=== PATIENT | female | born 1970 | race African-American/Black ===

== ENCOUNTER 2024-04-22 21:28 | Emergency (ER) | payer BC, SELFPAY ==
[2024-04-22 21:30] VITALS: BP 150/80
--- NOTE | 2024-04-22 22:45 | ED.GENMED ---
History of Present Illness
General
Chief Complaint: Allergic Reaction
Source: patient
Exam Limitations: none
Time Seen by Provider: 04/22/24 22:24
History of Present Illness
History of Present Illness:
This is a 54 year old female that comes in with c/o hives. States that they are staying in a Hotel and they went and worked out. State that they walked back to the room and about 2-3 hours ago she broke out into hives. States that they were all over
and she felt like she was burning. 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 States that she did use the pigs feet cleaner at the gym to wipe down the equipment. Denies any fever, chills, chest pain, SOB, abd
pain, nausea, vomiting, diarrhea, headache, dizziness, urinary burning. Denies any use of the towels, soaps or lotions.
Past History
Past History
ED Past Medical History: Other (Uterine Fibroid, )
ED Past Surgical History: ( X 2) and Gynecological (Uterine ablation)
Social History
Tobacco: Non-smoker
Alcohol: Occasional
Personal:
Living: with family
Employment: Employed
Review of Systems
Review of Systems
All Other Systems: ROS reviewed and negative except as documented in HPI and ROS
Constitutional: Reports no symptoms; Denies fever or chills
EENT: Reports no symptoms
Respiratory: Reports no symptoms; Denies cough or trouble breathing
Cardiac: Reports no symptoms; Denies chest pain
ABD/GI: Reports no symptoms; Denies abdominal pain, nausea, vomiting or diarrhea
: Reports no symptoms; Denies dysuria, frequency or urgency
Musculoskeletal: Reports no symptoms
Skin: Reports itching (with hives)
Neurological: Reports no symptoms; Denies dizzy or headache
Psychiatric: Reports no symptoms
Phy Exam
General Physical Exam
General Presentation: well appearing and no apparent distress
General age: appears stated age
General Skin: warm and dry
General Habitus: normal
General Mental: alert
General Hydration: appears well hydrated
ENT Exam
ENT Exam: TM's normal, pharynx normal and neck supple
Eye Exam
Eye Exam: EOMI
Cardiovascular Exam
Cardiovascular Exam: regular rate/rhythm, no edema, no murmur and normal peripheral pulses
Pulmonary Exam
Pulmonary Exam: lungs clear, no respiratory distress, no rales, chest non tender, no crackles, no rhonchi, no wheezing and no cough
Gastrointestinal Exam
Gastrointestinal Exam: normal bowel sounds, non tender, soft, no organomegaly, no pulsatile mass and non distended
Musculoskeletal Exam
Musculoskeletal Exam: full ROM and no edema
Skin Exam
Skin Exam: normal color, warm/dry, no petechia and other (Negative for any hives at this time. Slight redness noted on the arms. )
Psychiatric Exam
Psychiatric Exam: normal mood/affect
Course
Orders/Labs/Results
Orders:
Orders
04/22/24 22:44
Diphenhydramine [Benadryl] 50 mg PO NOW STA
Famotidine [Pepcid] 40 mg PO NOW STA
Vital Signs
Initial and Last Documented VS:
Initial Vital Signs
Temp Pulse Resp BP Pulse Ox
98.2 F 83 18 150/80 99
04/22/24 21:30 04/22/24 21:30 04/22/24 21:30 04/22/24 21:30 04/22/24 21:30
Last Documented Vital Signs
Temp Pulse Resp BP Pulse Ox
98.2 F 83 18 150/80 99
04/22/24 21:30 04/22/24 21:30 04/22/24 21:30 04/22/24 21:30 04/22/24 21:30
MDM/Problems Addressed
Differential Diagnosis Includes:
Allergic reaction
MDM/Problems Addressed:
This is a 54 year old female that comes in with c/o hives. States that they area staying in a hotel and after working out they went back to the room and she broke out in hives. Denies any use of towel, soaps or lotions but did use the wash for the
machines at the gym.
At this time there are no hives noted but patient still felt like she had some burning. Patient lungs are clear. This may have been a reaction to the solution that was used to clean the machines. Will give Benadryl and Pepcid and discharge patient
home.
*Pulse Oximetry
Patient hypoxic: no
*EKG
Interpreted by ED Provider?: NA
Rate: EKG- N/A
*Web Content Manager Interpretation
Rate: Web Content Manager- N/A
*Critical Care Note
Total Time (30-74mins, 75-104mins- exclusive of procedures): Not Applicable
ED Attending Note
-
Portions of this chart may have been created with voice recognition software.� Occasional wrong word or��sound alike� substitutions may have occurred due to the inherent limitations of voice recognition software.
Discharge Plan
Departure
Patient Disposition: Home (Routine Discharge)
Date of Disposition: 04/22/24
Time of Disposition: 22:52
Patient with high blood pressure during this ER visit?: Yes
Condition: Good
Covid-19: Not Applicable
Discharge Problem:
Allergic reaction
Instructions: Hives (DC), BLOOD PRESSURE
Referrals:
UNKNOWN - PT DOES,NOT KNOW [Family Provider] -
Activity Restrictions/Additional Instructions:
As discussed, at this time no hives are seen. You have been given Pepcid that will help decrease the histamine release and Benadryl to help with the itching and allergic reaction. You may continue with both of these medication tomorrow if you remain
itchy. They area both over the counter. They will make you tired to please no driving or alcohol. IF YOU HAVE ANY SHORTNESS OF BREATH, OR YOU HAVE ANY OTHER CONCERNS PLEASE RETURN TO THE EMERGENCY ROOM.
Interventions
Interventions:
*Neglect/Abuse Screening Last Done: 04/22/24 21:33
*ED COVID-19 Vaccine History Last Done: 04/22/24 21:33
Discharge Date and Time
Print Language: NEPALI
[2024-04-22 23:01] VITALS: BP 131/72
[2024-04-22] MEDS: BENADRYL 50 MG PO (23:02)
[2024-04-22] MEDS: PEPCID 40 MG PO (23:03)
== END 2024-04-22 23:07 | disposition home or self-care (01) ==
LOC: EMR 21:28
PROVIDERS: EMERGENCY PHYSICIAN Emergency Medicine
DX: T78.40XA Allergy, unspecified, initial encounter (principal); X58.XXXA Exposure to other specified factors, initial encounter
CPT/HCPCS: 99283

== ENCOUNTER → 2024-06-01 08:45 | Outpatient (REF) | payer BC, SELFPAY | LOC: WDC 08:45 | PROVIDERS: FAMILY PHYSICIAN Nurse Practitioner | DX: Z12.31 Encounter for screening mammogram for malignant neoplasm of breast (principal) | CPT/HCPCS: 77063; 77067 ==